=== PATIENT | female | born 1940 | race Caucasian/White ===

== ENCOUNTER 2019-01-26 13:21 | Inpatient (IN) | payer OTHER ==
[~2019-01-26] VITALS: Ht 167.6 cm; Wt 70.3 kg
[~2019-01-26 13:21] MED LIST: CITRATE OF MAG300 ML PO; CYCLOBENZAPRINE5 MG PO; NEURONTIN 300M300 M2 PO; PERCOCET 5-3251 EACH; PRIMIDONE50 MG PO; TOPAMAX 25 MG T25 M1 PO
[2019-01-26 13:30] VITALS: BP 132/92
[2019-01-26] MEDS ORDERED: OMEPRAZOLE 20 M20 M1 PO (13:33)
[2019-01-26] MEDS ORDERED: CBD OIL (13:33)
[2019-01-26 13:43] LABS: ABSOLUTE BASOPHILS 0.1 thou/uL (0.0-0.2); ABSOLUTE LYMPHOCYTES 1.7 thou/uL (0.8-5.3); ABSOLUTE MONOCYTES 0.5 thou/uL (0.0-1.2); ABSOLUTE NEUTROPHILS 3.2 thou/uL (1.6-8.1); BASOPHILS 1.3 %; EOSINOPHILS 0.9 %; HEMATOCRIT 43.9 % (37.0-47.0); LYMPHOCYTES 30.1 %; MCH 30.3 pg (26.0-34.0); MCHC 34.1 g/dL (28.0-37.0); MCV 88.7 fL (80.0-100.0); MONOCYTES 9.2 %; MPV 8.8 fl. (7.2-11.1); NUCLEATED RBCS 0 /100WBC; PLATELET COUNT* 245 thou/uL (150-400); POLYS 58.5 %; RBC 4.95 mil/uL (4.20-5.00); RDW-CV 13.3 % (10.5-14.5); WBC 5.5 thou/uL (4.0-11.0)
[2019-01-26 13:52] LABS: CALCIUM 9.6 mg/dL (8.5-10.1)
[2019-01-26 13:57] LABS: APTT 24.4 Seconds (25.0-31.3); PROTIME 9.9 Seconds (9.20-11.50)
[2019-01-26 14:05] LABS: ALBUMIN 3.8 g/dL (3.4-5.0); CK-MB MASS 0.6 ng/mL (<0.5-3.6); MAGNESIUM 2.1 mg/dL (1.8-2.4); TOTAL BILIRUBIN 0.4 mg/dL (<0.1-1.0); TOTAL PROTEIN 7.9 g/dL (6.4-8.2)
--- NOTE | 2019-01-26 16:08 | EKG ---
[place] [address] ELECTROCARDIOGRAM REPORT Name: KALEN ROPER Room: [place] [address] ADM IN M.R.#: [id number] Admission: 01/26/19 Attend Phys: Pola Mcneal Discharge: Date of : 40 Report #: [id number] THIS REPORT FOR: //name// [facility] ED Test Date: 2019-01-26 Test Time: 13:26:41 Pat Name: KALEN ROPER Department: Room: [facility] Gender: F [employer] Officer: [facility] [place] : 1940 Requested By: Shashi Estes Order Number: [id number] MD: Juan Hunter Measurements Intervals [place] Rate: 149 P: [place]: QRS: 8 QRSD: 84 T: 91 QT: 285 QTc: 449 Interpretive Statements Atrial fibrillation with rapid V-rate Repolarization abnormality, prob rate related No previous ECG available for comparison Electronically Signed On 01-26-2019 16:07:53 ORTHOPEDIC SURGEON by Juan Hunter [email or web address] <ELECTRONICALLY SIGNED> By: uJan Hunter MD, [facility] 01/26/19 1607 1326 132 Juan Hunter MD, FACC /EPI
[2019-01-26 16:40] VITALS: BP 109/67
[2019-01-26 17:00] VITALS: BP 119/79
[2019-01-26 19:34] VITALS: BP 91/59
[2019-01-26 20:29] VITALS: BP 120/65
[2019-01-27] VITALS: BP 95/43
[2019-01-27 04:00] VITALS: BP 107/54
[2019-01-27 08:00] VITALS: BP 126/68
[2019-01-27 09:21] LABS: CHOLESTEROL 190 mg/dL (<200); HDL CHOLESTEROL 39 mg/dL (>40); LDL CHOLESTEROL 131 mg/dL (<100); TC:HDL 4.9 Ratio (Not establshd); TRIGLYCERIDE 101 mg/dL (<150); VLDL 20 mg/dL (<40)
[2019-01-27 09:22] LABS: SERUM ASSESSMENT Clear
--- NOTE | 2019-01-27 12:13 | EKG ---
[place] [address] ELECTROCARDIOGRAM REPORT Name: KALEN ROPER Room: [address] ADM IN M.R.#: [id number] Admission: 01/26/19 Attend Phys: Pola Mcneal Discharge: Date of : 40 Report #: [id number] THIS REPORT FOR: //name// [facility] Test Date: 2019-01-26 Test Time: 20:21:58 Pat Name: KALEN ROPER Department: Room: [address] Gender: F Manager Nursing Home: [facility] : 1940 Requested By: Pola Espana Order Number: [id number] Keily MD: Juan Hunter Measurements Intervals [place] Rate: 62 P: 39 DC: 174 QRS: 14 QRSD: 101 T: 30 QT: 393 QTc: 399 Interpretive Statements Sinus rhythm Atrial premature complex Compared to ECG 01/26/2019 13:26:41 Atrial premature complex(es) now present Atrial fibrillation no longer present Early repolarization no longer present Electronically Signed On 01-27-2019 12:12:43 BARKER PEELER by Juan Hunter [email or web address] <ELECTRONICALLY SIGNED> By: Juan Hunter MD, FACC 01/27/19 1212 20 20 Juan Hunter MD, [facility] /EPI
[2019-01-27 16:27] VITALS: BP 101/61
--- NOTE | 2019-01-27 18:52 | 2DMMODE ---
[place] [address] 2 D/M-MODE ECHOCARDIOGRAM Name: KALEN ROPER Room: [address] IN [facility]#: [id number] Admission: 01/26/19 Attend Phys: Pola braxton Sa Discharge: Date of : 40 Date of Service: 01/27/19 1851 Report #: [id number] THIS REPORT FOR: //name// APPROVED REPORT Study performed: 01/27/2019 13:50:59 EXAM: Comprehensive 2D, Doppler, and color-flow Echocardiogram Patient Location: In-Patient Room #: [facility] Status: routine BSA: 1.82 HR: 47 bpm BP: 126/68 mmHg Rhythm: NSR Other Information Study Quality: Good Indications Atrial Fibrillation 2D Dimensions IVSd: 8.21 (7-11mm) LVOT Diam: 19.27 (18-24mm) LVDd: 50.51 mm PWd: 7.41 (7-11mm) Ascending Ao: 30.85 (22-36mm) LVDs: 31.88 (25-40mm) Aortic Root: 28.68 mm Volumes Left Atrial Volume (Systole) LA ESV Index: 17.60 mL/m2 Aortic Valve AoV Peak Michael.: 1.12 m/s AO Peak Gr.: 4.98 mmHg LVOT Max P.89 mmHg AO Mean Gr.: 2.61 mmHg LVOT Mean P.02 mmHg LVOT Max V: 1.11 m/s AO V2 VTI: 20.47 cm LVOT Mean V: 0.63 m/s TYRA (VTI): 3.36 cm2 LVOT V1 VTI: 23.55 cm Mitral Valve E/A Ratio: 0.97 MV Decel. Time: 244.49 ms MV E Max Michael.: 0.59 m/[place] [address] 2 D/M-MODE ECHOCARDIOGRAM Name: KALEN ROPER Room: [address] IN .R.#: [id number] Admission: 01/26/19 Attend Phys: Pola braxton Sa Discharge: Date of : 40 Date of Service: 01/27/19 1851 Report #: [id number] PHT: 70.90 ms MVA (PHT): 3.10 cm2 TDI E/Lateral E': 6.56 E/Medial E': 7.38 Medial E' Michael.: 0.08 m/s Lateral E' Michael.: 0.09 m/s Pulmonary Valve PV Peak Michael.: 0.92 m/s PV Peak Gr.: 3.42 mmHg Left Ventricle The left ventricle is normal size. There is normal LV segmental wall motion. There is normal left ventricular wall thickness. Left ventricular systolic function is normal. The left ventricular ejection fraction is within the normal range. LVEF is 60%. Grade I - abnormal relaxation pattern. Right Ventricle The right ventricle is normal size. The right ventricular systolic function is normal. Atria The left atrium size is normal. The right atrium size is normal. Aortic Valve Mild aortic valve sclerosis. No aortic regurgitation is present. There is no aortic valvular stenosis. Mitral Valve The mitral valve is normal in structure. Trace mitral regurgitation. No evidence of mitral valve stenosis. Tricuspid Valve The tricuspid valve is normal in structure. Unable to assess PA pressure. Trace tricuspid regurgitation. Pulmonic Valve The pulmonary valve is normal in structure. Trace pulmonic regurgitation. Great Vessels The aortic root is normal in size. IVC is normal in size and collapses >50% [place] [address] 2 D/M-MODE ECHOCARDIOGRAM Name: KALEN ROPER Room: [address] IN [facility]#: [id number] Admission: 01/26/19 Attend Phys: Pola braxton Sa Discharge: Date of : 40 Date of Service: 01/27/19 1851 Report #: [id number] Pericardium There is no pericardial effusion. <Conclusion> The left ventricle is normal size. There is normal left ventricular wall thickness. Left ventricular systolic function is normal. The left ventricular ejection fraction is within the normal range. LVEF is 60%. Grade I - abnormal relaxation pattern. The right ventricle is normal size. The left atrium size is normal. Mild aortic valve sclerosis. No aortic regurgitation is present. There is no aortic valvular stenosis. The mitral valve is normal in structure. Trace mitral regurgitation. The tricuspid valve is normal in structure. IVC is normal in size and collapses >50% with inspiration. There is no pericardial effusion. There is normal LV segmental wall motion. <ELECTRONICALLY SIGNED> By: Juan Hunter MD, FACC 01/27/191850 50 50 Juan Hunter MD, FACC /INF
[2019-01-27 19:45] VITALS: BP 109/56
--- NOTE | 2019-01-27 19:46 | CARDNUC ---
[place] [address] CARDIAC NUCLEAR IMAGING REPORT Name: KALEN ROPER Room: [address] IN [facility]#: [id number] Admission: 01/26/19 Attend Phys: Pola braxton Sa Discharge: Date of : 40 Date of Service: 01/27/191945 Report #: [id number] THIS REPORT FOR: //name// APPROVED REPORT Study performed: 01/27/2019 11:18:11 Exam: Nuclear Stress Test Indication: Atrial Fibrillation, Chest pain Patient Location: In-Patient Room #: 219 Stress Tech: Columba Sanchez Stress Nurse: Chaparrita Villalba RN Ht: 5 ft 6 in Wt: 154 lbs BSA: 1.79 m2 BMI: 24.85 Medical History Medications: metoprolol Allergies: nkda Cardiac Risk Factors: age Exercise History: Sedentary Stress Test Details Stress Test: Pharmacologic stress testing performed using 0.4 mg of regadenoson per 5 mL given IV over 10 seconds. Reason for pharmacologic stress test: physical limitation. HR Resting HR: 62 bpm Max Heart Rate (APMHR): 142 bpm Max HR Achieved: 98 bpm Target HR (85% APMHR): 120 bpm % of APMHR: 69 Recovery HR: 77 bpm BP Resting BP: 109/81 mmHg Max BP: 129/69 mmHg ECG Resting ECG: Sinus Rhythm Stress ECG: Sinus Rhythm ST Change: None Arrhythmia: None Recovery ECG: Sinus Rhythm Recovery ST Change: [place] [address] CARDIAC NUCLEAR IMAGING REPORT Name: KALEN ROPER Room: [address] IN [facility].#: [id number] Admission: 01/26/19 Attend Phys: Pola joya los Discharge: Date of : 40 Date of Service: 01/27/191945 Report #: [id number] Recovery Arrhythmia: None Clinical Reason for Termination: Completed protocol Exercise duration: 0 min sec Exercise capacity: 1 METs The patient had no significant cardiac symptoms with Lexiscan infusion. Nurse Comments pt unable to walk on treadmill d/t esential tremors. iv caffeine 60 mg ivp was given after test. pt co nausea. resolved with caffeine Stress ECG Conclusion The baseline 12-lead EKG shows sinus rhythm without significant ST or T wave abnormality. EKGs obtained during and post infusion show sinus rhythm with no significant ST or T wave changes when compared to baseline. There were no stress-induced arrhythmias. NM EXAM: Myocardial Perfusion REST/STRESS Resting Data Rest SPECT myocardial perfusion imaging was performed in supine position 45 minutes following the intravenous injection of 10.3 mCi of Tc-99m Sestamibi. Time of rest injection: 09:50 The images were gated to evaluate regional wall motion and calculate left ventricular ejection fraction. Administration Route: IV Administration Site: Left AC Pharmacologic Stress Pharmacologic stress test was performed by injecting Regadenoson 0.4 mg IV push followed by the intravenous injection of 31.5 mCi of Tc-99m Sestamibi. Time of stress injection: 11:25 Administration Route: IV Administration Site: Left AC Heart Rate at time of stress injection: 96 bpm. Gated Stress SPECT was performed 45 minutes after stress injection. The images were gated to evaluate regional wall motion and calculate left ventricular ejection [place] [address] CARDIAC NUCLEAR IMAGING REPORT Name: KALEN ROPER Room: [address] IN ..#: [id number] Admission: 01/26/19 Attend Phys: Pola braxton Sa Discharge: Date of : 40 Date of Service: 01/27/19 1946 Report #: [id number] Study: Fair Study Data Post stress, the left ventricular ejection was 68%.. Perfusion Post stress perfusion images show uniform uptake of the radioisotope throughout the myocardium with no defect to suggest infarct or ischemia. Wall Motion Normal left ventricular wall motion. Nuclear Conclusion ECG Findings: negative for ischemia Clinical Findings: negative for ischemia Nuclear Findings: negative for ischemia Exercise Capacity: not assessed Left Ventricular Function: normal Risk Study: low Myocardial perfusion images obtained post Lexiscan stress show uniform uptake of the radioisotope throughout the myocardium. There were no defects to suggest infarct or ischemia. Left ventricular systolic function is normal on gated studies. This is a low risk study. <Conclusion> The baseline 12-lead EKG shows sinus rhythm without significant ST or T wave abnormality. EKGs obtained during and post infusion show sinus rhythm with no significant ST or T wave changes when compared to baseline. There were no stress-induced arrhythmias. <ELECTRONICALLY SIGNED> By: Parker Santo MD, [facility] 01/27/191945 45 45 Parker Santo MD, FACC /INF
[2019-01-27 23:55] VITALS: BP 105/63
[2019-01-28 04:00] VITALS: BP 118/64
[2019-01-28 08:30] VITALS: BP 112/65
[2019-01-28 09:14] VITALS: BP 118/64
[2019-01-28] MEDS ORDERED: ELIQUIS5 MG PO (10:16)
[2019-01-28] MEDS ORDERED: FLECAINIDE ACET50 M2 PO (10:17)
[2019-01-28 12:03] VITALS: BP 117/62
[2019-01-28 12:50] VITALS: BP 118/64
[2019-01-28] MEDS ORDERED: LIPITOR 20 MG T20 M1 PO (13:35)
== END 2019-01-28 13:45 | disposition home or self-care (01) | DRG 309 ==
LOC: M.ERS 13:21 → M.2W 14:13 → M.TBA-ER 14:13 → M.2W 17:05
PROVIDERS: Family Medicine; Registered Nurse; ADMIT Family Medicine
PROC: 5A2204Z Restoration of Cardiac Rhythm, Single (ICD-10-PCS; principal; 2019-01-28)
DX: I48.91 Unspecified atrial fibrillation (principal); D68.69 Other thrombophilia; K59.00 Constipation, unspecified; G25.0 Essential tremor; K21.9 Gastro-esophageal reflux disease without esophagitis; E78.5 Hyperlipidemia, unspecified; Z79.899 Other long term (current) drug therapy

== ENCOUNTER 2020-01-09 13:51 | Emergency (ER) | payer OTHER ==
[~2020-01-09] VITALS: Ht 167.6 cm; Wt 72.6 kg
[~2020-01-09 13:51] MED LIST changes: +CBD OIL; +ELIQUIS5 MG PO; +FLECAINIDE ACET50 M2 PO; +LIPITOR 20 MG T20 M1 PO; +OMEPRAZOLE 20 M20 M1 PO
[2020-01-09 14:50] LABS: INFLUENZA A ANTIGEN Negative (Negative); INFLUENZA B ANTIGEN Negative (Negative)
[2020-01-09] MEDS ORDERED: DOXYCYCLINE 10100 MG PO (16:02)
[2020-01-09] MEDS ORDERED: TESSALON PERLE100 MG PO (16:02)
[2020-01-09] MEDS ORDERED: PREDNISONE 20 M20 MG PO (16:02)
[2020-01-09 16:13] VITALS: BP 124/70
== END 2020-01-09 16:13 | disposition home or self-care (01) ==
LOC: M.ERS 13:51
PROVIDERS: Nurse Practitioner Family
DX: J12.9 Viral pneumonia, unspecified (principal); Z20.828 Contact with and (suspected) exposure to other viral communicable diseases; K21.9 Gastro-esophageal reflux disease without esophagitis; E78.5 Hyperlipidemia, unspecified; I48.91 Unspecified atrial fibrillation; Z79.899 Other long term (current) drug therapy